=== PATIENT | male | born 1995 | race Caucasian/White ===

== ENCOUNTER 2023-05-08 09:00 | Outpatient (RCR) | payer BC, SELFPAY | END 2023-07-19 15:18 | disposition home or self-care (01) | PROVIDERS: Visit Provider Nurse Practitioner Family | DX: M25.532 Pain in left wrist (principal); M25.531 Pain in right wrist; M77.8 Other enthesopathies, not elsewhere classified; Z51.89 Encounter for other specified aftercare | CPT/HCPCS: 97035; 97110; 97140; 97165; 97530; X5282 ==